=== PATIENT | female | born 1945 | race Two or more races ===

== ENCOUNTER 2025-06-10 07:00 | Day surgery (SDC) | payer OTHER ==
[2025-06-04 12:18] VITALS: BP 142/82
[~2025-06-10] VITALS: Ht 162.6 cm; Wt 59.0 kg
[~2025-06-10 07:00] MED LIST: ALLERGY RELIE15.8 ML NASAL; DILT-XR120 MG PO
[2025-06-10] MEDS ORDERED: LIDOCAINE HCL 2% 20ML VIAL IJ ONE (11:30)
[2025-06-10] MEDS ORDERED: ONDANSETRON HCL 2 MG/ML VIAL ONE (12:21)
[2025-06-10] MEDS ORDERED: TRAM1TAB98 PO (12:23)
[2025-06-10] MEDS ORDERED: CEPHALEXIN250 M1 PO (12:23)
== END 2025-06-10 14:20 | disposition home or self-care (01) ==
LOC: CIR.AMB 07:00
PROVIDERS: ATTEND Obstetrics & Gynecology Gynecology
DX: N32.81 Overactive bladder (principal); N39.41 Urge incontinence; R35.0 Frequency of micturition; Z91.013 Allergy to seafood
CPT/HCPCS: 64581; 64590; 95972; C1767; C1778